=== PATIENT | male | born 1940 | race Caucasian/White ===

== ENCOUNTER → 2022-12-16 | Outpatient (CLI) | payer MEDICARE, BC ==
[~2022-12-16] MED LIST: REGADENOSON 0.4 MG/5 ML SYRINGE IV PRN
--- NOTE | 2022-12-16 11:38 | NM ---
EXAMINATION TYPE: NM stress lexiscan cardiolite DATE OF EXAM: 12/16/2022 COMPARISON: NONE HISTORY: Chest pain TECHNIQUE: After the intravenous administration of 9.8 mCi Tc 99m Sestamibi - Cardiolite resting SPE CT images acquired 45 minutes post injection. The patient received 0.4mg Lexiscan, 24.6 mCi Tc 99m Sestamibi - Stress images obtained [address] injection FINDINGS: Review of stress and rest SPECT images demonstrates fixed perfusion defect of apex hernia correspondi ng to normal. Gated analysis shows an estimated left ventricular ejection fraction of 47 %. IMPRESSION: 1. Predominantly small fixed defect involving the apex of the myocardium. Tiny area of stress-induced reversible ischemia not excluded correlate clinically.
--- NOTE | 2022-12-16 12:58 | CA ---
Lexiscan Nuclear Stress Test Report Name: Grant López Exam Date: 12/16/2022 09:32 Exam Location: [place] Stress Ht (in): 67 Wt (lb): 200 BSA: 2.02 Ordering Phys: Ramses Lozano MD Referring Phys: GISELLE,, Technologist: MEDINA,, Age: 82 Gender: M : 1940 Procedure CPT: Indications: I25.10 ICD-10 Codes: Patient History: Shortness of breath. Medications: Meds past 24 hrs: Pretest Chest Pain: STRESS TEST Lexiscan Protocol Exercise Duration (min:sec): 02:[address] Depressions (mm): Angina Score: Hargrove Score: Resting HR (bpm): 66 Peak HR (bpm): 68 Resting BP (mmHg): 148 / 104 Peak BP (mmHg): 144 / 89 MPHR: 136 Target HR: 116 % MPHR: 50 METS: 1.0 Total Dose: Peak Dose: Atropine: Double Product: 9792 BP Response: Stress Termination: Infusion complete Stress Symptoms: Dyspnea Stress Summary: ECG ANALYSIS Resting ECG: Stress ECG: CONCLUSIONS Lexiscan cardio lyte stress test Heart rates in the 60s Blood pressure 145/89 mmHg Patient has a pacemaker Atrial paced rhythm intermittently No ECG evidence for ischemia No arrhythmias Dr. Best Rocha MD (Electronically Signed) Final Date: 16 December 2022 12:57
== END | disposition home or self-care (01) ==
LOC: RADNMMAIN 07:36
PROVIDERS: ATTEND Family Medicine
DX: I25.10 Atherosclerotic heart disease of native coronary artery without angina pectoris (principal); I51.89 Other ill-defined heart diseases
CPT/HCPCS: 93017; 78452; A9500; J2785

== ENCOUNTER 2022-12-30 14:57 | Emergency (ER) | payer MEDICARE, BC ==
[2022-12-30] MEDS ORDERED: MORPHINE SULFATE 4 MG/ML SYRINGE IVP STA (15:22)
--- NOTE | 2022-12-30 15:24 | ED ---
Abdominal Pain HPI - General Source: patient, family, RN notes reviewed, old records reviewed Mode of arrival: ambulatory Limitations: no limitations - History of Present Illness MD Complaint: abdominal pain -: days(s) (5) Location: diffuse Severity scale (1-10): 9 Quality: fullness Consistency: constant Improves With: nothing Associated Symptoms: other (Urinary retention) <Parag Joyner - Last Filed: 12/30/22 19:12> <Billy Urbina - Last Filed: 12/30/22 20:34> - General Chief Complaint: Abdominal Pain Stated Complaint: constipation Time Seen by Provider: 12/30/22 15:14 - History of Present Illness Initial Comments: This is a pleasant 82-year-old male that presents ambulatory with complaints of abdominal pain and constipation since Monday. Patient states that he had a very hard time moving his bowels on Monday has been using multiple stool softeners and has taken 6 pills over the past 2 days with no relief. He also used a fleets enema today with no relief. He states he has not able to urinate since yesterday worsening his abdominal pain. No vomiting or fevers. He does have a history of hypertension, abdominal aortic aneurysm, hyperlipidemia and appendectomy. (Parag Joyner) - Related Data Allergies Allergy/AdvReac Type Severity Reaction Status Date / Time Iodinated Contrast Media AdvReac Nausea & Verified 12/30/22 17:47 Vomiting Review of Systems ROS Other: All systems not noted in ROS Statement are negative. <Parag Joyner - Last Filed: 12/30/22 19:12> ROS Other: All systems not noted in ROS Statement are negative. <Billy Urbina - Last Filed: 12/30/22 20:34> ROS Statement: Those systems with pertinent positive or pertinent negative responses have been documented in the HPI. Past Medical History Past Medical History: Hyperlipidemia, Hypertension History of Any Multi-Drug Resistant Organisms: None Reported Past Surgical History: No Surgical Hx Reported, Pacemaker Past Psychological History: No Psychological Hx Reported Smoking Status: Never smoker Past Alcohol Use History: None Reported Past Drug Use History: None Reported <Parag Joyner - Last Filed: 12/30/22 19:12> General Exam Limitations: no limitations General appearance: alert, in no apparent distress Head exam: Present: atraumatic Eye exam: Absent: scleral icterus, conjunctival injection, periorbital swelling Respiratory exam: Absent: respiratory distress, accessory muscle use Cardiovascular Exam: Present: regular rate GI/Abdominal exam: Present: soft, distended, tenderness Extremities exam: Present: normal capillary refill Neurological exam: Present: alert, oriented X3 Psychiatric exam: Present: normal affect, normal mood Skin exam: Present: warm, dry, normal color. Absent: cyanosis, diaphoretic, pallor <Parag Joyner - Last Filed: 12/30/22 19:12> Course - Reevaluation(s) Time: 18:15 <Parag Joyner - Last Filed: 12/30/22 19:12> Vital Signs 12/30/22 12/30/22 12/30/22 15:07 18:11 18:59 Temperature 98.1 F Pulse Rate 90 69 72 Respiratory 22 18 18 Rate Blood Pressure 183/124 181/101 171/104 O2 Sat by Pulse 96 97 92 L Oximetry 12/30/22 12/30/22 19:09 19:33 Temperature Pulse Rate 69 Respiratory 18 Rate Blood Pressure 144/100 140/100 O2 Sat by Pulse Oximetry - Reevaluation(s) Reevaluation #1: 12/30/22 18:19 Dr. Beck radiology called identifying an 11 cm aortic aneurysm. Case discussed with Dr. Urbina (Parag Joyner) Medical Decision Making - Lab Data Result diagrams: 12/30/22 15:53 12/30/22 15:53 <Parag Joyner - Last Filed: 12/30/22 19:12> - Lab Data Result diagrams: 12/30/22 15:53 12/30/22 15:53 <Billy Urbina - Last Filed: 12/30/22 20:34> - Medical Decision Making CT abdomen and pelvis shows large abdominal aortic aneurysm measuring 11.5 cm in diameter. There is aorta iliac endograft. There is aneurysms of the common iliac arteries at measure up to 3.5 cm. No dissection. There is some apparent contrast enhancement of the right lateral aspect of the aneurysm that could be some active bleeding or recent expansion. No evidence of diverticulitis. No sign of bowel obstruction. No sign of thickened appendix. Patient and state his aortic aneurysm stent was placed [address] Clark at [facility] on [address], . His last visit with his surgeon was last month and measured 11cm and the doctor is monitoring. He has another appointment for follow-up in April. Patient's pain was resolved after Velasquez catheter insertion and morphine. Velasquez catheter was placed for urinary retention of 700 mL. Hemoglobin and hematocrit is stable. There is no evidence of leukocytosis. Electrolytes are unremarkable. Urinalysis negative for infection. Blood pressure is elevated patient was placed on a labatelol drip after discussion with Dr. Urbina my attending. Multiple attempts to reach Dr. Clark patient's vascular surgeon been unsuccessful. Case was turned over to Dr. Urbina for disposition as we try to reach Dr. House our vascular surgeon. (Parag Joyner) Case was taken over from nurse practitioner, Shawn Joyner. Briefly, patient is a 2-year-old male presents to the emergency department for constipation. States his bed having rockhard stools causing bleeding and pain to his rectum. Labs were reviewed and found to be unremarkable. CT with contrast was ordered by previous provider showing 11.5 cm aneurysm with perhaps some concern of intracranial aneurysmal active bleeding or recent expansion. Case was discussed with patient's primary surgeon Dr. Clark. Dr. Clark was able to track down old films and seems that his most recent CT showed aneurysmal dilatation of around [address] Uribe recommendation was to have patient transferred to [facility] for further care. Vital signs were reevaluated found with a blood pressure 140/100. Patient's reevaluated bedside A 15 p.m. 5 to be cellulitic condition. Patient does not feel like his symptoms are not secondary to his aneurysm but only due to his constipation. accepting physician is Dr. Clark. transferring service accepted patient for further care. (Billy Urbina) - Lab Data Lab Results 12/30/22 12/30/22 12/30/22 Range/Units 15:53 15:53 15:53 WBC 5.5 (3.8-10.6) k/uL RBC 4.45 (4.30-5.90) m/uL Hgb 12.7 L (13.0-17.5) gm/dL Hct 38.4 L (39.0-53.0) % MCV 86.4 (80.0-100.0) fL MCH 28.4 (25.0-35.0) pg MCHC 32.9 (31.0-37.0) g/dL RDW 14.1 (11.5-15.5) % Plt Count 149 L (150-450) k/uL MPV 8.6 Neutrophils % 77 % Lymphocytes % 14 % Monocytes % 6 % Eosinophils % 1 % Basophils % 0 % Neutrophils # 4.2 (1.3-7.7) k/uL Lymphocytes # 0.8 L (1.0-4.8) k/uL Monocytes # 0.3 (0-1.0) k/uL Eosinophils # 0.1 (0-0.7) k/uL Basophils # 0.0 (0-0.2) k/uL PT 10.6 (9.0-12.0) sec INR 1.0 (<1.2) APTT 27.9 (22.0-30.0) sec Sodium (137-145) mmol/L Potassium (3.5-5.1) mmol/L Chloride (98-107) mmol/L Carbon Dioxide (22-30) mmol/L Anion Gap mmol/L BUN (9-20) mg/dL Creatinine (0.66-1.25) mg/dL Est GFR (CKD-EPI)AfAm (>60 ml/min/1.73 sqM) Est GFR (CKD-EPI)NonAf (>60 ml/min/1.73 sqM) Glucose (74-99) mg/dL Plasma Lactic Acid Lewsi (0.7-2.0) mmol/L Calcium (8.4-10.2) mg/dL Total Bilirubin (0.2-1.3) mg/dL AST (17-59) U/L ALT (4-49) U/L Alkaline Phosphatase (38-126) U/L Total Protein (6.3-8.2) g/dL Albumin (3.5-5.0) g/dL Amylase (30-110) U/L Lipase (23-300) U/L Urine Color Yellow Urine Appearance Cloudy (Clear) Urine pH 7.5 (5.0-8.0) Ur Specific [place] 1.021 (1.001-1.035) Urine Protein Trace H (Negative) Urine Glucose (UA) Negative (Negative) Urine Ketones Negative (Negative) Urine Blood Negative (Negative) Urine Nitrite Negative (Negative) Urine Bilirubin Negative (Negative) Urine Urobilinogen <2.0 (<2.0) mg/dL Ur Leukocyte Esterase Negative (Negative) Urine RBC 1 (0-5) /hpf Urine WBC 1 (0-5) /hpf Amorphous Sediment Occasional H (None) /hpf 12/30/22 12/30/22 Range/Units 15:53 15:53 WBC (3.8-10.6) k/uL RBC (4.30-5.90) m/uL Hgb (13.0-17.5) gm/dL Hct (39.0-53.0) % MCV (80.0-100.0) fL MCH (25.0-35.0) pg MCHC (31.0-37.0) g/dL RDW (11.5-15.5) % Plt Count (150-450) k/uL MPV Neutrophils % % Lymphocytes % % Monocytes % % Eosinophils % % Basophils % % Neutrophils # (1.3-7.7) k/uL Lymphocytes # (1.0-4.8) k/uL Monocytes # (0-1.0) k/uL Eosinophils # (0-0.7) k/uL Basophils # (0-0.2) k/uL PT (9.0-12.0) sec INR (<1.2) APTT (22.0-30.0) sec Sodium 140 (137-145) mmol/L Potassium 3.5 (3.5-5.1) mmol/L Chloride 110 H (98-107) mmol/L Carbon Dioxide 24 (22-30) mmol/L Anion Gap 6 mmol/L BUN 25 H (9-20) mg/dL Creatinine 0.86 (0.66-1.25) mg/dL Est GFR (CKD-EPI)AfAm >90 (>60 ml/min/1.73 sqM) Est GFR (CKD-EPI)NonAf 80 (>60 ml/min/1.73 sqM) Glucose 86 (74-99) mg/dL Plasma Lactic Acid Lewis 1.0 (0.7-2.0) mmol/L Calcium 7.6 L (8.4-10.2) mg/dL Total Bilirubin 1.0 (0.2-1.3) mg/dL AST 20 (17-59) U/L ALT 12 (4-49) U/L Alkaline Phosphatase 45 (38-126) U/L Total Protein 5.8 L (6.3-8.2) g/dL Albumin 3.3 L (3.5-5.0) g/dL Amylase 34 (30-110) U/L Lipase 37 (23-300) U/L Urine Color Urine Appearance (Clear) Urine pH (5.0-8.0) Ur Specific [place] (1.001-1.035) Urine Protein (Negative) Urine Glucose (UA) (Negative) Urine Ketones (Negative) Urine Blood (Negative) Urine Nitrite (Negative) Urine Bilirubin (Negative) Urine Urobilinogen (<2.0) mg/dL Ur Leukocyte Esterase (Negative) Urine RBC (0-5) /hpf Urine WBC (0-5) /hpf Amorphous Sediment (None) /hpf Disposition <Parag Joyner - Last Filed: 12/30/22 19:12> Time of Disposition: 20:16 - Out of Hospital Transfer - Req. Specs Out of Hospital Transfer - Requested Specifics: Other Emergency Center ([facility]) <Billy Urbina - Last Filed: 12/30/22 20:34> Clinical Impression: AAA (abdominal aortic aneurysm), not a candidate for repair, Urinary retention, Constipation Disposition: OTHER INSTITUTION NOT DEFINED Condition: Serious Referrals: Ramses Lozano MD [Primary Care Provider] - 1-2 days
[2022-12-30 16:16] LABS: Basophils % (A) 0 %; Eosinophils # (A) 0.1 k/uL (0-0.7); Eosinophils % (A) 1 %; HCT 38.4 % (39.0-53.0); HGB 12.7 gm/dL (13.0-17.5); Lymphocytes # (A) 0.8 k/uL (1.0-4.8); Lymphocytes % (A) 14 %; MCH 28.4 pg (25.0-35.0); MCHC 32.9 g/dL (31.0-37.0); MCV 86.4 fL (80.0-100.0); Mean Platelet Volume 8.6; Monocytes # (A) 0.3 k/uL (0-1.0); Monocytes % (A) 6 %; Neutrophils # (A) 4.2 k/uL (1.3-7.7); Neutrophils % (A) 77 %; Platelet Count 149 k/uL (150-450); RBC 4.45 m/uL (4.30-5.90); RDW 14.1 % (11.5-15.5); WBC 5.5 k/uL (3.8-10.6)
[2022-12-30 16:28] LABS: ALT 12 U/L (4-49); AST 20 U/L (17-59); African American GFR (CKD) >90 (>60 ml/min/1.73 sqM); Albumin 3.3 g/dL (3.5-5.0); Alkaline Phosphatase 45 U/L (38-126); Amylase 34 U/L (30-110); Anion Gap 6 mmol/L; Blood Urea Nitrogen 25 mg/dL (9-20); Calcium 7.6 mg/dL (8.4-10.2); Carbon Dioxide 24 mmol/L (22-30); Chloride 110 mmol/L (98-107); Glucose 86 mg/dL (74-99); Lipase 37 U/L (23-300); Non-African American GFR(CKD) 80 (>60 ml/min/1.73 sqM); Sodium 140 mmol/L (137-145); Total Protein 5.8 g/dL (6.3-8.2)
[2022-12-30 16:47] LABS: Partial Thromboplastin Time 27.9 sec (22.0-30.0); Prothrombin Time 10.6 sec (9.0-12.0)
[2022-12-30 16:48] LABS: Amorphous Sediment,Urine Occasional /hpf; Appearance,Urine Cloudy (Clear); Bilirubin,Urine Negative (Negative); Blood,Urine Negative (Negative); Color,Urine Yellow; Glucose,Urine (UA) Negative (Negative); Ketones,Urine Negative (Negative); Leukocyte Esterase,Urine Negative (Negative); Nitrite,Urine Negative (Negative); PH, Urine 7.5 (5.0-8.0); Protein,Urine Trace (Negative); RBC,Urine 1 /hpf (0-5); Specific Gravity,Urine 1.021 (1.001-1.035); Urobilinogen,Urine <2.0 mg/dL (<2.0); WBC,Urine 1 /hpf (0-5)
[2022-12-30 17:20] LABS: Potassium 3.5 mmol/L (3.5-5.1)
--- NOTE | 2022-12-30 18:10 | CT ---
EXAMINATION TYPE: CT abdomen pelvis w con DATE OF EXAM: 12/30/2022 COMPARISON: None HISTORY: abdominal pain CT DLP: 934.4 mGycm Automated exposure control for dose reduction was used. CONTRAST: Performed with IV Contrast, patient injected with 100 mL of Isovue 300. Images obtained from the diaphragm to the floor the pelvis with the IV contrast. There is some interstitial mild infiltrate and atelectasis at the lung bases. No pleural effusion. He art is enlarged. Liver spleen stomach appear intact. There are multiple cysts in the pancreas. There is pancreatic atr ophy. Gallbladder is intact. The bile ducts are not dilated. There is large abdominal aortic aneurysm that measures up to 11.5 cm in diameter. There is aorto roque c endograft. There is aneurysms of the common iliac arteries that measure up to 3.5 cm. No dissection . There is some apparent contrast enhancement on the right lateral aspect of the aneurysm could be so me active bleeding or recent expansion. There is Velasquez catheter in the urinary bladder. Bladder is empty. No inguinal hernia. There are numer ous sigmoid diverticula. No diverticulitis. There is no mesenteric edema. No ascites or free air. No sign of a bowel obstruction. There is a 3 cm fat-containing umbilical hernia. No evidence of thickened appendix. The lumbar vertebrae are normal alignment. There is 80% compression fracture of L3 vertebral body wit h extension into the spinal canal. Fracture appears old. There is 50% compression deformity of L1 jonh tebra. Fracture appears old. IMPRESSION: Large abdominal aortic aneurysm. Recommend comparison with old exams. There is some apparent contrast enhancement on the right lateral aspect of the aneurysm that could be active bleeding or recent expa nsion. These was discussed with emergency room attending staff at 6:15 PM.
[2022-12-30] MEDS ORDERED: hydrALAZINE HCL 20 MG/ML 1 ML VIAL IVP STA (18:28)
[2022-12-30] MEDS ORDERED: LABETALOL 5 MG/ML VIAL MDV IVP STA (18:29)
[2022-12-30] MEDS ORDERED: LABETALOL 200 MG in SODIUM CHLORIDE 0.9% 160 ML IV ONE (18:30)
[2022-12-30] MEDS ORDERED: LABETALOL 200 MG in SODIUM CHLORIDE 0.9% 160 ML IV SCH (18:45)
[2022-12-30 21:05] VITALS: BP 140/98; PULSE 76; RESP 16; TEMP 98.2
== END 2022-12-30 21:21 | disposition other institution (70) ==
LOC: EC 14:57
DX: I71.40 Abdominal aortic aneurysm, without rupture, unspecified (principal); R33.9 Retention of urine, unspecified; K59.00 Constipation, unspecified; I10 Essential (primary) hypertension; Z91.041 Radiographic dye allergy status
CPT/HCPCS: 36415; 80053; 82150; 83605; 83690; 85025; 85610; 85730; 81001; 74177; 99285; 96374; 96375; 51702; J2270; Q9967

== ENCOUNTER → 2023-06-09 | Outpatient (CLI) | payer MEDICARE, BC ==
[2023-06-09 13:34] LABS: African American GFR (CKD) 71 (>60 ml/min/1.73 sqM); Blood Urea Nitrogen 27 mg/dL (9-20); Non-African American GFR(CKD) 61 (>60 ml/min/1.73 sqM)
--- NOTE | 2023-06-09 20:01 | CT ---
EXAMINATION TYPE: CT abdomen pelvis w con DATE OF EXAM: 06/09/2023 COMPARISON: 12/30/2022 HISTORY: 83-year-old male R10.31, RLQ PAIN TECHNIQUE: Contiguous axial scanning of the abdomen and pelvis following administration of 100 ml Iso kristine 300 IV contrast. 5 minute delayed images through the kidneys of disease the technologist notes t hat the patient vomited minimal injection delaying the series) and coronal/sagittal reconstructions p erformed. CT DLP: 1759.5 mGycm Automated exposure control for dose reduction was used. FINDINGS: Heart mildly enlarged. Reticular change and fibrosis within the lower lungs. No pleural eff usion. Tiny hiatal hernia. No focal liver lesion or biliary ductal dilatation. No abnormal gallbladder distention. Adrenal gland s, spleen within normal limits. Bilateral renal cortical cysts measuring up to 2.5 cm redemonstrated . Increasing multiple areas of cystic change throughout the body and tail of the pancreas spanning up t o 10.8 cm long and 5.1 cm craniocaudal. Individual cystic areas have all increased in some are new. T here may be some developing soft tissue component at the body of the pancreas measuring 2.9 cm that s hould be reassessed at follow-up. The head and neck of the pancreas shows relative fatty atrophy. Tortuous descending thoracic aorta with a aneurysm up to 3.2 cm. At the thoracoabdominal junction, there is aneurysm of 3.5 cm. Redemonstrated aorta by endovascular stent graft. There is a left posterolateral saccular aneurysm near the proximal aspect of the stent graft measurin g 3.8 cm wide, slightly increased from 3.6 cm, previously. Very large infrarenal circle sac extending to the aortic bifurcation measures 11.2 x 10.5 cm, not sig nificantly changed from 11.6 x 10.5 cm, previously. No obvious endoleak on the earlier phase of imaging. This is limited as no initial noncontrast series was provided. Aneurysm of the right common iliac artery circle sac at 4.1 cm versus 3.9 cm, previously. Fusiform aneurysm left common femoral artery and 2.5 cm, unchanged. Extensive coiling right internal iliac system. Moderate sized periumbilical hernia at 4.6 cm wide slightly larger from 3.7 cm, previously. No dilated small bowel, free fluid, free air. No mesenteric or retroperitoneal lymphadenopathy. Oral contrast progressed to the splenic flexure of the colon. Mild scattered stool burden. Redundant sigmo id colon. Significant diverticulosis. No pericolonic inflammatory change. Bladder partially distended. Prostate gland is enlarged at 4.8 cm wide. Dependent bladder calculus me asuring 6 mm. Patulous left inguinal canal. Pelvic phleboliths. No abnormal fluid collection in the p erlinda or pelvic lymphadenopathy. Bones: Mild to moderate right and mild left hip degenerative change. L3 vertebral compression collaps e unchanged from 12/30/2022. There appears to be a severe focal spinal canal stenosis at this level. Bonilla perior endplate deformity of L1 is also unchanged. Marked ligamentum flavum thickening and bulging di sc at L4-L5 appears to be increased and may contribute to a severe focal spinal canal stenosis here a s well. IMPRESSION: 1. ANEURYSMAL THORACOABDOMINAL AORTA WITH MEASUREMENTS ABOVE. THERE IS AN AORTOBIILIAC ENDOVASCULA R STENT GRAFT. THE LARGE [place] SAC IS RELATIVELY SIMILAR AND 11.2 X 10.5 CM. NO OBVIOUS ENDOLEAK THO UGH ASSESSMENT IS LIMITED NO INITIAL NONCONTRAST SERIES WAS PROVIDED. 2. RIGHT COMMON ILIAC ARTERY ANEURYSMAL SAC MEASURES 4.1 CM VERSUS 3.9 CM, PREVIOUSLY. FUSIFORM ANEUR YSM LEFT COMMON ILIAC ARTERY AT 2.5 CM IS UNCHANGED. 3. INCREASING SIZE AND NUMBER OF PULSES THROUGHOUT THE BODY AND TAIL OF THE PANCREAS AND A 210.8 X 5. 1 CM. CORRELATE FOR POSSIBLE CYSTIC PANCREATIC NEOPLASM OR IPMN. QUESTIONABLE DEVELOPING SOFT TISSUE COMPONENT AT THE BODY OF THE PANCREAS MEASURING 2.9 CM. CORRELATION WITH TUMOR MARKERS AND SHORT INTE RVAL FOLLOW-UP TO EXCLUDE EARLY SOLID NEOPLASM. 4. SIGMOID DIVERTICULOSIS. 6 NO DEPENDENT BLADDER CALCULUS. TINY HIATAL HERNIA. 5. L1 AND L3 COMPRESSION DEFORMITIES. SEVERE FOCAL SPINAL CANAL STENOSIS AT THE L3 LEVEL. LIGAMENTUM FLAVUM THICKENING AND DISC BULGE AT L4-L5 APPEARS TO BE INCREASING AND MAY RELATE TO SEVERE FOCAL SPI NAL CANAL STENOSIS HERE WELL. CORRELATE WITH PATIENT'S SYMPTOMS.
== END | disposition home or self-care (01) ==
LOC: RADCTMAIN 12:37
PROVIDERS: ATTEND Family Medicine
DX: I71.40 Abdominal aortic aneurysm, without rupture, unspecified (principal); I72.3 Aneurysm of iliac artery; I73.9 Peripheral vascular disease, unspecified; K44.9 Diaphragmatic hernia without obstruction or gangrene; K57.30 Diverticulosis of large intestine without perforation or abscess without bleeding; M48.061 Spinal stenosis, lumbar region without neurogenic claudication; M51.36 Other intervertebral disc degeneration, lumbar region; R10.31 Right lower quadrant pain
CPT/HCPCS: 82565; 84520; 74177; 36415; Q9967

== ENCOUNTER 2023-09-25 15:39 | Emergency (ER) | payer MEDICARE, BC ==
[2023-09-25 15:57] VITALS: TEMP 98
--- NOTE | 2023-09-25 16:22 | XR ---
EXAMINATION TYPE: XR abdomen 2V DATE OF EXAM: 09/25/2023 4:04 PM CLINICAL INDICATION:Male, 83 years old with history of constipation; [facility] COMPARISON: 06/09/2023. TECHNIQUE: Two views of the abdomen were obtained. FINDINGS: Normal-appearing stool burden The bowel gas pattern is nonspecific without dilated loops of small or large bowel. There is no evidence for organomegaly or pneumoperitoneum. The osseous struct ures are intact. No abnormal calcifications are present. Fecal material and gas are demonstrated thr oughout the colon and rectum. Abdominal stent grafts noted. Embolization coils in the right lower ab domen/pelvis. Cardiac conduction leads partially visualized. IMPRESSION: Nonspecific bowel gas pattern without radiographic evidence for acute process.
--- NOTE | 2023-09-25 18:32 | ED ---
General Adult HPI - General Chief complaint: Abdominal Pain Stated complaint: constipated Time Seen by Provider: 09/25/23 18:05 Source: patient Mode of arrival: ambulatory Limitations: no limitations - History of Present Illness Initial comments: Dictation was produced using [employer] dictation software. please excuse any grammatical, word or spelling errors. Chief Complaint: 83-year-old male presents to the emergency department with no bowel movement in 3 weeks History of Present Illness: 83-year-old male he states he has a history of constipation. He takes Metamucil. He missed a dose 2 days in a roll recently. Since then he has not had any satisfying bowel movements. He tried enemas and all these other [id number] substances with no resolve. Denies any abdominal pain. No nausea vomiting or fevers. He's been eating. The ROS documented in this emergency department record has been reviewed and confirmed by me. Those systems with pertinent positive or negative responses have been documented in the HPI. All other systems are other negative and/or noncontributory. - Related Data Allergies Allergy/AdvReac Type Severity Reaction Status Date / Time No Known Allergies Allergy Verified 09/25/23 15:45 Review of Systems ROS Statement: Those systems with pertinent positive or pertinent negative responses have been documented in the HPI. ROS Other: All systems not noted in ROS Statement are negative. Past Medical History Past Medical History: Hyperlipidemia, Hypertension History of Any Multi-Drug Resistant Organisms: None Reported Past Surgical History: Pacemaker Additional Past Surgical History / Comment(s): aortic aneurysm Past Psychological History: No Psychological Hx Reported Smoking Status: Never smoker Past Alcohol Use History: None Reported Past Drug Use History: None Reported General Exam - General Exam Comments Initial Comments: PHYSICAL EXAM: General Impression: Alert and oriented x3, not in acute distress HEENT: Normocephalic atraumatic, extra-ocular movements intact, pupils equal and reactive to light bilaterally, mucous membranes moist. Cardiovascular: Heart regular rate and rhythm Chest: Able to complete full sentences, no retractions, no tachypnea Abdomen: abdomen soft, non-tender, non-distended, no organomegaly Musculoskeletal: Pulses present and equal in all extremities, no peripheral edema Motor: no focal deficits noted Neurological: CN II-XII grossly intact, no focal motor or sensory deficits noted Skin: Intact with no visualized rashes Psych: Normal affect and mood Rectal exam: No palpatory stool in the rectal vault Limitations: no limitations Course Vital Signs 09/25/23 09/25/23 15:42 18:03 Temperature 98 F Pulse Rate 64 83 Respiratory 16 20 Rate Blood Pressure 155/95 190/120 O2 Sat by Pulse 97 97 Oximetry Medical Decision Making - Medical Decision Making Was pt. sent in by a medical professional or institution (SIERRA Duron, AGRONOMY PROFESSOR, urgent care, hospital, or usp...) When possible be specific @ -No Did you speak to anyone other than the patient for history (EMS, parent, family, police, friend...)? What history was obtained from this source @ -No Did you review nursing and triage notes (agree or disagree)? Why? @ -I reviewed and agree with nursing and triage notes Were old charts reviewed (outside hosp., previous admission, EMS record, old E KG, old radiological studies, urgent care reports/EKG's, usp records)? Report findings @ -No old charts were reviewed Differential Diagnosis (chest pain, altered mental status, abdominal pain women, abdominal pain men, vaginal bleeding, musculoskeletal, weakness, fever, dyspnea, syncope, headache, dizziness, GI bleed, back pain, seizure, CVA, palpatations, mental health)? @ -not applicable EKG interpreted by me (3pts min.). @ -None done X-rays interpreted by me (1pt min.). @ -X-rays unremarkable for an acute processes. CT interpreted by me (1pt min.). @ -None done U/S interpreted by me (1pt. min.). @ -None done What testing was considered but not performed or refused? (CT, X-rays, U/S, labs)? Why? @ -None What meds were considered but not given or refused? Why? @ -None Did you discuss the management of the patient with other professionals (professionals i.e. SIERRA Duron, AGRONOMY PROFESSOR, lab, RT, psych nurse, renal social worker, bowl turner, teacher, public records officer, lead case manager)? Give summary @ -No Was smoking cessation discussed for >3mins.? @ -No Was critical care preformed (if so, how long)? @ -No Were there social determinants of health that impacted care today? How? (Homele ssness, low income, unemployed, alcoholism, drug addiction, transportation, low edu. Level, literacy, decrease access to med. care, nursing home, rehab)? @ -No Was there de-escalation of care discussed even if they declined (Discuss DNR or withdrawal of care, Hospice)? DNR status @ -No What co-morbidities impacted this encounter? (DM, HTN, Smoking, COPD, CAD, Cancer, CVA, ARF, Chemo, Hep., AIDS, mental health diagnosis, sleep apnea, morbid obesity)? @ -None Was patient admitted / discharged? Hospital course, mention meds given and route, prescriptions, significant lab abnormalities, going to OR and other pertinent info. @ -83-year-old male presents emergency Department with chief complaint of lack of bowel movement for 3 days. He has not had any features of constipation. He denies very aggressive with having regular bowel hygiene. Vital signs are stable. Abdominal examination is unremarkable. X-rays nonobstructive. Labs are unremarkable. Patient given some GoLYTELY to help pass some stool that is seen on the x-ray in the proximal colon. Patient otherwise advised follow-up with his primary care doctor. Undiagnosed new problem with uncertain prognosis? @ -No Drug Therapy requiring intensive monitoring for toxicity (Heparin, Nitro, Insulin, Cardizem)? @ -No Were any procedures done? @ -No Diagnosis/symptom? Acute, or Chronic, or Acute on Chronic? Uncomplicated (without systemic symptoms) or Complicated (systemic symptoms)? @ -Change in bowel habits Side effects of treatment? @ -No Exacerbation, Progression, or Severe Exacerbation? @ -No Poses a threat to life or bodily function? How? (Chest pain, USA, MT, pneumonia, PE, COPD, DKA, ARF, appy, cholecystitis, CVA, Diverticulitis, Homicidal, Suic idal, threat to staff... and all critical care pts) @ -No - Lab Data Result diagrams: 09/25/23 18:25 09/25/23 18:25 Lab Results 09/25/23 09/25/23 Range/Units 18:25 18:25 WBC 9.3 (3.8-10.6) k/uL RBC 4.60 (4.30-5.90) m/uL Hgb 13.2 (13.0-17.5) gm/dL Hct 40.7 (39.0-53.0) % MCV 88.3 (80.0-100.0) fL MCH 28.7 (25.0-35.0) pg MCHC 32.5 (31.0-37.0) g/dL RDW 15.0 (11.5-15.5) % Plt Count 199 (150-450) k/uL MPV 9.8 Neutrophils % 65 % Lymphocytes % 19 % Monocytes % 8 % Eosinophils % 7 % Basophils % 0 % Neutrophils # 6.0 (1.3-7.7) k/uL Lymphocytes # 1.7 (1.0-4.8) k/uL Monocytes # 0.7 (0-1.0) k/uL Eosinophils # 0.7 (0-0.7) k/uL Basophils # 0.0 (0-0.2) k/uL Sodium 139 (137-145) mmol/L Potassium 3.9 (3.5-5.1) mmol/L Chloride 99 (98-107) mmol/L Carbon Dioxide 30 (22-30) mmol/L Anion Gap 10 mmol/L BUN 22 H (9-20) mg/dL Creatinine 1.04 (0.66-1.25) mg/dL Est GFR (CKD-EPI)AfAm 76 (>60 ml/min/1.73 sqM) Est GFR (CKD-EPI)NonAf 66 (>60 ml/min/1.73 sqM) Glucose 102 H (74-99) mg/dL Calcium 9.3 (8.4-10.2) mg/dL Total Bilirubin 0.9 (0.2-1.3) mg/dL AST 29 (17-59) U/L ALT 21 (4-49) U/L Alkaline Phosphatase 93 (38-126) U/L Total Protein 7.0 (6.3-8.2) g/dL Albumin 4.0 (3.5-5.0) g/dL Lipase 74 (23-300) U/L Disposition Clinical Impression: Bowel dysfunction Disposition: HOME SELF-CARE Condition: Good Instructions (If sedation given, give patient instructions): Polyethylene Glycol 3350/Electrolytes (By mouth) Is patient prescribed a controlled substance at d/c from ED?: No Referrals: Ramses Lozano MD [Primary Care Provider] - 1-2 days Time of Disposition: 19:51
[2023-09-25 19:02] LABS: Basophils % (A) 0 %; Eosinophils # (A) 0.7 k/uL (0-0.7); Eosinophils % (A) 7 %; HCT 40.7 % (39.0-53.0); HGB 13.2 gm/dL (13.0-17.5); Lymphocytes # (A) 1.7 k/uL (1.0-4.8); Lymphocytes % (A) 19 %; MCH 28.7 pg (25.0-35.0); MCHC 32.5 g/dL (31.0-37.0); MCV 88.3 fL (80.0-100.0); Mean Platelet Volume 9.8; Monocytes # (A) 0.7 k/uL (0-1.0); Monocytes % (A) 8 %; Neutrophils % (A) 65 %; Platelet Count 199 k/uL (150-450); WBC 9.3 k/uL (3.8-10.6)
[2023-09-25 19:29] LABS: ALT 21 U/L (4-49); AST 29 U/L (17-59); African American GFR (CKD) 76 (>60 ml/min/1.73 sqM); Alkaline Phosphatase 93 U/L (38-126); Anion Gap 10 mmol/L; Blood Urea Nitrogen 22 mg/dL (9-20); Calcium 9.3 mg/dL (8.4-10.2); Carbon Dioxide 30 mmol/L (22-30); Chloride 99 mmol/L (98-107); Glucose 102 mg/dL (74-99); Lipase 74 U/L (23-300); Non-African American GFR(CKD) 66 (>60 ml/min/1.73 sqM); Potassium 3.9 mmol/L (3.5-5.1); Sodium 139 mmol/L (137-145); Total Bilirubin 0.9 mg/dL (0.2-1.3)
[2023-09-25] MEDS ORDERED: PEG 3350 (236 GM/BTL) + LYTES 4,000 ML BOTTLE PO ONE (19:45)
[2023-09-25 20:27] VITALS: BP 174/88; PULSE 82; RESP 18
== END 2023-09-25 20:24 | disposition home or self-care (01) ==
LOC: EC 15:39
DX: K59.02 Outlet dysfunction constipation (principal); I10 Essential (primary) hypertension; Z95.0 Presence of cardiac pacemaker
CPT/HCPCS: 36415; 74019; 80053; 83690; 85025; 99284